=== PATIENT | female | born 1985 | race Caucasian/White ===

== ENCOUNTER 2023-04-28 07:10 | Day surgery (SDC) | payer OTHER ==
[2023-04-28] VITALS (220 sets, daily range): BP systolic 58–165; BP diastolic 41–135
[~2023-04-28] VITALS: Ht 165.1 cm; Wt 72.6 kg
[2023-04-28 08:16] LABS: BASO% 0.3 % (0-3); HEMATOCRIT 39.1 % (37.0-47.0); HEMOGLOBIN 12.6 g/dl (12.0-16.0); LYMPH% 39.5 % (15-41); MEAN CELL VOLUME 95.4 fL CALC (80.0-100.0); MEAN CORPUSCULAR HGB 30.7 pG CALC (26.0-32.0); MEAN CORPUSCULAR HGB CONC 32.2 g/dL CAL (32.0-36.0); MONO% 6.7 % (2-13); NEUT# 3.27 thou/uL (2.00-7.15); NEUT% 48.5 % (42-76); RED BLOOD COUNT 4.1 mill/uL (4.20-5.60)
[2023-04-28] MEDS ORDERED: GABAPENTIN100 MG PO (08:20)
[2023-04-28] MEDS ORDERED: ADDERALL15 MG PO (08:21)
[2023-04-28 08:31] LABS: ALBUMIN 4.1 g/dL (3.2-5.0); ALKALINE PHOSPHATASE 66 u/l (38-126); ANION GAP 12 (6-22 (CALC)); BILIRUBIN, TOTAL 0.4 mg/dL (0.02-1.3); BUN 18 mg/dL (7-17); BUN/CREATININE RATIO 25 (12-20 (CALC)); CARBON DIOXIDE 31 mmol/l (22-30); CHLORIDE 100 mmol/l (95-108); CREATININE 0.7 mg/dL (0.5-1.0); GFR FOR AFR.AMER. > 60 ML/MIN (>=60 (CALC)); GFR OTHER RACES > 60 ML/MIN (>=60 (CALC)); POTASSIUM 3.9 mmol/l (3.5-5.1); SGOT/AST 46 u/l (14-36); SODIUM 138 mmol/l (137-146); TOTAL PROTEIN 7.3 g/dL (6.3-8.2)
[2023-04-28] MEDS ORDERED: KLONOPIN2 MG PO (13:02)
[2023-04-28] MEDS ORDERED: NALTREXONE50 MG PO (13:02)
[2023-04-28] MEDS ORDERED: CLONIDINE0.1 MG PO (13:02)
[2023-04-29 03:56] LABS: BASO% 0.1 % (0-3); HEMATOCRIT 43.5 % (37.0-47.0); HEMOGLOBIN 14.5 g/dl (12.0-16.0); IMMATURE GRANULOCYTES 0.1 % (0.0-5.0); LYMPH% 9.5 % (15-41); MEAN CELL VOLUME 92.6 fL CALC (80.0-100.0); MEAN CORPUSCULAR HGB 30.9 pG CALC (26.0-32.0); MEAN CORPUSCULAR HGB CONC 33.3 g/dL CAL (32.0-36.0); MONO% 0.9 % (2-13); NEUT# 7.08 thou/uL (2.00-7.15); NEUT% 89.4 % (42-76); RED BLOOD COUNT 4.7 mill/uL (4.20-5.60); RED CELL DISTRI WIDTH 12.7 % (11.5-15.5)
[2023-04-29 04:09] LABS: ALBUMIN 4.1 g/dL (3.2-5.0); ALKALINE PHOSPHATASE 78 u/l (38-126); BUN 10 mg/dL (7-17); BUN/CREATININE RATIO 18 (12-20 (CALC)); CHLORIDE 107 mmol/l (95-108); CREATININE 0.6 mg/dL (0.5-1.0); GFR FOR AFR.AMER. > 60 ML/MIN (>=60 (CALC)); GFR OTHER RACES > 60 ML/MIN (>=60 (CALC)); MAGNESIUM 2.2 mg/dL (1.6-2.3); POTASSIUM 4.1 mmol/l (3.5-5.1); SGOT/AST 42 u/l (14-36); SODIUM 139 mmol/l (137-146); TOTAL PROTEIN 7.5 g/dL (6.3-8.2)
[2023-04-29 04:15] LABS: ANION GAP 12 (6-22 (CALC)); BILIRUBIN, TOTAL 0.8 mg/dL (0.02-1.3); CARBON DIOXIDE 24 mmol/l (22-30)
[2023-04-29 04:27] VITALS: BP 107/62
[2023-04-29 07:09] VITALS: BP 134/74
[2023-04-29 07:37] VITALS: BP 134/74
[2023-04-29 08:21] VITALS: BP 134/74
== END 2023-04-29 17:09 | disposition home or self-care (01) | DRG 897 ==
LOC: MS2 07:10 → ANR 07:10 → MS2 17:59 → ANR 04-29 17:09
PROVIDERS: ATTEND Anesthesiology Critical Care Medicine
DX: F11.20 Opioid dependence, uncomplicated (principal)
CPT/HCPCS: J2354; J3475